=== PATIENT | male | born 1990 | race Caucasian/White ===

== ENCOUNTER 2021-04-08 09:49 | Emergency (ER) | payer SELFPAY ==
--- NOTE | 2021-04-08 09:47 | ECG_ITS ---
APPROVED REPORT Exam: Resting ECG HR:94 bpm ECG Measurements Heart Rate 94 AXES VA 144 P 52 QRSd 84 QRS 21 QT 386 T 33 QTc 482 Conclusion Normal sinus rhythm Prolonged QT Abnormal ECG Electronically signed by : Aki Pena MD 04/08/2021 15:12:02
[2021-04-08 09:50] VITALS: BP 137/93; PULSE 94; RESP 16; TEMP 37.1; O2SAT 100; BMI 306636.1
[2021-04-08 09:51] VITALS: BMI 30.7
--- NOTE | 2021-04-08 09:53 | XR_ITS ---
PROCEDURE INFORMATION: Exam: XR Chest Exam date and time: 04/08/2021 9:53 AM Age: 30 years old Clinical indication: Shortness of breath; Patient HX: SOA, with chest pain started x 1 hour ago , smoker TECHNIQUE: Imaging protocol: XR of the chest. Views: 1 view. COMPARISON: No relevant prior studies available. FINDINGS: Lungs: Unremarkable. No consolidation. Pleural spaces: Unremarkable. No pleural effusion. No pneumothorax. Heart/Mediastinum: Unremarkable. No cardiomegaly. Bones/joints: Unremarkable. IMPRESSION: No acute findings.
--- NOTE | 2021-04-08 09:58 | [facility].EDCP ---
ED Disposition Clinical Impression: Atypical chest pain, Substance abuse Chest pain Qualifiers: Chest pain type: unspecified Qualified Code(s): R07.9 - Chest pain, unspecified Disposition: Home, Self-Care Condition on Discharge: Good Instructions: DI for Atypical Chest Pain Additional Instructions: Including cocaine. Follow-up with your primary care physician in about 3 to 4 days for a cardiac work-up. Please return to the emergency department if you feel worse in any way. Referrals: Provider,Referral, [Primary Care Provider] - - Critical Care Critical Care Time: No Attestation: On , the high probability of a clinically significant, sudden or life threatening deterioration of the following system(s) required my full and direct attention, intervention and personal management. The time I documented below is in addition to time spent performing reported procedures but includes the following listed in this critical care notation. Medical Decision Making - Medical Records Medical records reviewed: Yes: I reviewed the patient's medical records. - Frantz Inquiry Pt receiving controlled substance: No Vital Signs: 04/08/21 09:50 04/08/21 10:00 04/08/21 10:30 Temperature 98.8 F Temperature Source Oral Pulse Rate 84 76 Pulse Rate [Radial] 94 H Respiratory Rate 16 15 17 Blood Pressure 138/85 121/76 Blood Pressure [Right Arm] 137/93 H Blood Pressure Mean [Right Arm] 107 Blood Pressure Position [Right Arm] Sitting 02 Sat by Pulse Oximetry 100 100 99 Oxygen Delivery Method Room Air - Lab Data Lab results reviewed: Yes: I reviewed the patient's lab results. Lab Results 04/08/21 09:30: WBC 19.6 H, RBC 4.85, Hgb 14.8, Hct 41.3 L, MCV 85.3, MCH 30.4, MCHC 35.7 H, RDW 13.3, Plt Count 416, MPV 7.2 L, Neut % (Auto) 82.2 H, Lymph % (Auto) 11.8, [place] % (Auto) 5.4, Eos % (Auto) 0.4, Baso % (Auto) 0.3, Neut # (Auto) 16.1 H, Lymph # (Auto) 2.3, [place] # (Auto) 1.1 H, Eos # (Auto) 0.1, Baso # (Auto) 0.1, Total Counted 100, Neutrophils % (Manual) 75, Lymphocytes % (Manual) 20, Monocytes % (Manual) 5, Platelet Estimate Normal, RBC Morphology Normal 04/08/21 09:30: Sodium 139, Potassium 3.8, Chloride 105, Carbon Dioxide 20 L, Anion Gap 17.8 H, BUN 11, Creatinine 0.90, Estimated Creat Clear 144, Estimated GFR 98, Est GFR ( Amer) 118, Glucose 115 H, Calcium 9.7, Troponin I < 0.01 04/08/21 10:15: Urine Color Yellow, Urine Appearance Clear, Urine pH 8.0, Ur Specific [place] 1.010, Urine Protein Negative, Urine Glucose (UA) Negative, Urine Ketones Negative, Urine Blood Trace-l, Urine Nitrate Negative, Urine Bilirubin Negative, Urine Urobilinogen 0.2, Ur Leukocyte Esterase Negative, Urine RBC 3-5, Urine WBC Occasional, Ur Squamous Epith Cells 3-5, Urine Bacteria None 04/08/21 10:15: Urine Opiates Screen Negative, Urine Methadone Screen Negative, Ur Barbituates Screen Negative, Ur Phencyclidine Scrn Negative, Ur Amphetamines Screen Negative, U Benzodiazepines Scrn Negative, Urine Cocaine Screen Positive H, U Marijuana (THC) Screen Negative 04/08/21 12:15: Troponin I < 0.01 Result diagrams: 04/08/21 09:30 04/08/21 09:30 Orders (Tests/Meds): ORDERS Category Date Time Status Troponin I Q3H Lab 04/08/21 16:00 Ordered - Radiology Data #1 Image(s): Chest Image Reviewed: Yes I reviewed the patient's radiology results, Yes I reviewed the patient's radiology image, Yes I have reviewed radiologist's interpretation Preliminary Findings: Normal/NAD - ECG Data Tracing #1 I reviewed this ECG and interpreted as documented below: The patient's EKG was done at 9:48 AM. Shows a normal sinus rhythm with a rate of 94 bpm. There is a prolonged QT interval. Otherwise the ECG is unremarkable without any evidence of dysrhythmia and or ischemia. Normal Sinus Rhythm: Yes Conduction abnormalities present: QT prolongation - GERALDO Score for Non-Stemi Age of Patient: 30-39 years old Heart Rate: 90-109 bpm Syst[place]
[2021-04-08 10:00] VITALS: BP 138/85; PULSE 84; RESP 15; O2SAT 100
[2021-04-08 10:04] LABS: Basophils # 0.1 K/mm3 (0-0.2); Basophils % 0.3 % (0.1-2.0); Eosinophils # 0.1 K/mm3 (0.0-0.4); Eosinophils % 0.4 % (0.1-12.0); Hematocrit 41.3 % (42.0-52.0); Hemoglobin 14.8 g/dL (14.1-18.0); Lymphocytes # 2.3 K/mm3 (0.7-4.5); Lymphocytes % 11.8 % (10-50); Mean Corpuscular HGB Conc 35.7 g/dL (31.8-35.4); Mean Corpuscular Hemoglobin 30.4 pg (27.0-31.2); Mean Corpuscular Volume 85.3 fl (80-94); Mean Platelet Volume 7.2 fl (7.4-10.4); Monocytes # 1.1 K/mm3 (0.1-1.0); Monocytes % 5.4 % (1.7-9.3); Neutrophils # 16.1 K/mm3 (1.8-7.8); Neutrophils % 82.2 % (37.0-80.0); Platelet Count 416 K/mm3 (142-424); Red Blood Count 4.85 M/mm3 (4.60-6.20); Red Cell Distribution Width 13.3 % (11.5-17.5); White Blood Count 19.6 K/mm3 (4.8-10.8)
[2021-04-08 10:06] LABS: MANUAL DIFFERENTIAL MANUAL DIFFERENTIAL (MANUAL DIFF)
[2021-04-08 10:10] LABS: Chloride 105 mmol/L (98-107); Sodium 139 mmol/L (136-145)
[2021-04-08 10:11] LABS: Potassium 3.8 mmoL/L (3.5-5.1)
[2021-04-08 10:13] LABS: Blood Urea Nitrogen 11 mg/dl (9-20); Creatinine Clearance Estimated 144 mL/min (50-200); Estimated Glomerular Filt Rate 98 ml/min (>60); GFR (African American) 118 ML/MIN (>60)
[2021-04-08 10:14] LABS: Anion Gap 17.8 mEq/L (5-15); Calcium 9.7 mg/dl (8.4-10.2); Carbon Dioxide 20 mmol/L (22.0-30.0); Glucose 115 mg/dl (74-100)
[2021-04-08 10:17] LABS: Lymphocytes % 20 % (10-50); Monocytes % 5 % (2-9); Neutrophils % 75 % (42-76); Platelet Estimate Normal; RBC Morphology Normal; Total Cells Counted 100
[2021-04-08 10:22] LABS: Appearance,Urine CLEAR (Clear); Bilirubin,Urine Negative (Negative); Blood, Urine TRACE-L (Negative); Color,Urine YELLOW (Yellow); Glucose,Urine (UA) Negative (Negative); Ketones,Urine Negative (Negative); Leukocyte Esterase,Urine Negative (Negative); Microscopic, Urine URINE MICROSCOPIC (MICROSCOPIC); Nitrate,Urine Negative (Negative); Protein,Urine Negative (Negative); Urobilinogen,Urine 0.2 EU/dl (0.2)
[2021-04-08 10:27] LABS: Troponin I < 0.01 ng/ml (0.00-0.034)
[2021-04-08 10:30] VITALS: BP 121/76; PULSE 76; RESP 17; O2SAT 99
[2021-04-08 10:37] LABS: Barbiturates Screen,Urine Negative ng/ml (<200)
[2021-04-08 10:38] LABS: Amphetamine/Metha Screen,Urine Negative ng/ml (<1000); Benzodiazepines Screen,Urine Negative ng/ml (<200)
[2021-04-08 10:39] LABS: Methadone Screen,Urine Negative ng/ml (<300)
[2021-04-08 10:40] LABS: Cannabinoid Screen,Urine Negative ng/ml (<50); Cocaine Screen,Urine Positive ng/ml (<300)
[2021-04-08 10:41] LABS: Opiate Screen,Urine Negative ng/ml (<300)
[2021-04-08 10:42] LABS: Phencyclidine Screen,Urine Negative ng/ml (<25)
[2021-04-08 10:44] LABS: WBC,Urine Occasional #/hpf (0-3)
[2021-04-08 11:30] VITALS: BP 128/74; PULSE 78
--- NOTE | 2021-04-08 12:17 | PC.NURSE ---
Pt has requested to leave v/s monitors off
[2021-04-08 12:30] VITALS: BP 119/68; PULSE 72; RESP 16; O2SAT 96
[2021-04-08 13:31] LABS: Troponin I < 0.01 ng/ml (0.00-0.034)
[2021-04-08 13:49] VITALS: BP 121/80; PULSE 78; RESP 15; TEMP 36.6; O2SAT 98
== END 2021-04-08 13:50 | disposition home or self-care (01) ==
PROVIDERS: Emergency Provider Emergency Medicine
DX: R07.89 Other chest pain (principal); F19.10 Other psychoactive substance abuse, uncomplicated; F17.210 Nicotine dependence, cigarettes, uncomplicated
CPT/HCPCS: 71045; 80048; 80305; 81001; 84484; 85007; 85025; 93005; 99283

== ENCOUNTER 2023-01-24 21:37 | Emergency (ER) | payer SELFPAY ==
[2023-01-24 21:38] VITALS: BP 168/94; PULSE 91; RESP 16; TEMP 36.6; O2SAT 96; BMI 27.4
--- NOTE | 2023-01-24 21:45 | ECG_ITS ---
APPROVED REPORT Exam: Resting ECG HR:90 bpm ECG Measurements Heart Rate 90 AXES [place] 140 P 69 QRSd 93 QRS 62 QT 340 T 66 QTc 388 Conclusion SINUS RHYTHM INDETERMINATE AXIS POSSIBLE RIGHT VENTRICULAR CONDUCTION DELAY [RSR (QR) IN V1/V2] BORDERLINE ECG UNCONFIRMED REPORT Electronically signed by : Aki Pena MD 01/26/2023 07:16:10
[2023-01-24 22:06] VITALS: BMI 27.4
--- NOTE | 2023-01-24 22:07 | CT_ITS ---
PROCEDURE INFORMATION: Exam: CT Maxillofacial With Contrast Exam date and time: 01/24/2023 10:23 PM Age: 32 years old Clinical indication: Other: Dental pain; Additional info: Abcess tooth with facial pressure TECHNIQUE: Imaging protocol: Computed tomography of the face with contrast. Total images: 231 Radiation optimization: All CT scans at this facility use at least one of these dose optimization techniques: automated exposure control; mA and/or kV adjustment per patient size (includes targeted exams where dose is matched to clinical indication); or iterative reconstruction. Contrast material: ISOVUE; Contrast volume: 75 ml; Contrast route: IV; REPORTING DATA: Count of CT and Cardiac NM exams in prior 12 months: This patient has received 0 known CTs and 0 known cardiac nuclear medicine studies in the 12 months prior to the current study. COMPARISON: CT HEAD/BRAIN WO CON 01/24/2023 10:20 PM FINDINGS: Orbital cavities: Orbital globes are intact and symmetric. No retro-orbital mass, fluid, or air. Bones/joints: Nasal septal deviation to the right with a septal spur. No facial bone fracture. No concerning bone lesions. Intact mandible. Symmetric bilateral temporomandibular joints. Included upper cervical spine at C1 through C4 5 is grossly unremarkable but incompletely visualized. Paranasal sinuses: Retention cysts or polyps base of the bilateral maxillary sinuses. Included sinuses are otherwise clear. No air-fluid levels. Ostiomeatal complexes are patent. Soft tissues: Perimandibular soft tissue swelling. No discrete abscess or drainable fluid collection. Punctate metallic foreign body left upper lip. Dental: Very poor dental health with multiple dental erosions and dental fragmentations. Absent teeth. Periapical root abscess referable to the posterior left mandibular molar. IMPRESSION: 1. Very poor dental health with multiple dental erosions, caries, and fragmentations. Recommend dental consultation. 2. Periapical root abscess posterior left mandibular molar. 3. Perimandibular soft tissue swelling. No visualized or discrete abscess. 4. Incidental bilateral maxillary retention cysts or polyps.
--- NOTE | 2023-01-24 22:07 | CT_ITS ---
PROCEDURE INFORMATION: Exam: CT Head Without Contrast Exam date and time: 01/24/2023 10:20 PM Age: 32 years old Clinical indication: Other: Abcess tooth pain; Additional info: Abcess tooth with facial pressure TECHNIQUE: Imaging protocol: Computed tomography of the head without contrast. Total images: 281 Radiation optimization: All CT scans at this facility use at least one of these dose optimization techniques: automated exposure control; mA and/or kV adjustment per patient size (includes targeted exams where dose is matched to clinical indication); or iterative reconstruction. REPORTING DATA: Count of CT and Cardiac NM exams in prior 12 months: This patient has received 0 known CTs and 0 known cardiac nuclear medicine studies in the 12 months prior to the current study. COMPARISON: No relevant prior studies available. FINDINGS: Brain: No acute intracranial hemorrhage, midline shift, or mass. Damico-white interface is maintained. Basilar cisterns are preserved. Cerebral ventricles: No ventriculomegaly. Paranasal sinuses: Polyp or retention cysts bilateral maxillary sinuses. No air-fluid levels. Polyps or retention cysts bilateral maxillary sinuses. Mastoid air cells: Visualized mastoid air cells are well aerated. Bones/joints: Unremarkable. No acute fracture. Soft tissues: Unremarkable. IMPRESSION: No acute intracranial process.
--- NOTE | 2023-01-24 22:09 | XR_ITS ---
PROCEDURE INFORMATION: Exam: XR Chest Exam date and time: 01/24/2023 10:19 PM Age: 32 years old Clinical indication: Other: Heart palpatations, dental abcess; Additional info: Heart palpitations TECHNIQUE: Imaging protocol: Radiologic exam of the chest. Views: 2 views. Total images: 2 COMPARISON: CR XR CHEST PORTABLE 04/08/2021 10:09 AM FINDINGS: Tubes, catheters and devices: EKG leads are present. Lungs: Unremarkable. No consolidation. No pulmonary vascular congestion or edema. Pleural spaces: Unremarkable. No pleural effusion. No pneumothorax. Heart/Mediastinum: Unremarkable. No cardiomegaly. No mediastinal widening or hilar enlargement. Bones/joints: Mild anterior wedging L1 and L2 vertebral bodies of undetermined acuity. Organs: Excreted contrast from both kidneys. IMPRESSION: No radiographically acute cardiopulmonary process.
[2023-01-24 22:24] LABS: Coronavirus 19, PCR Not Detected (NotDetected); Influenza A, PCR Not Detected (NotDetected); Influenza B, PCR Not Detected (NotDetected)
--- NOTE | 2023-01-24 22:30 | PC.NURSE ---
pt back from scan
[2023-01-24 22:32] LABS: Basophils % 0.2 % (0.1-2.0); Eosinophils # 0.3 K/mm3 (0.0-0.4); Eosinophils % 1.8 % (0.1-12.0); Hematocrit 46.4 % (42.0-52.0); Hemoglobin 15.7 g/dL (14.1-18.0); Lymphocytes # 1.6 K/mm3 (0.7-4.5); Lymphocytes % 9.7 % (10-50); Mean Corpuscular HGB Conc 33.8 g/dL (31.8-35.4); Mean Corpuscular Hemoglobin 30.4 pg (27.0-31.2); Mean Corpuscular Volume 89.9 fl (80-94); Mean Platelet Volume 7.4 fl (7.4-10.4); Monocytes # 0.6 K/mm3 (0.1-1.0); Monocytes % 3.8 % (1.7-9.3); Neutrophils # 13.8 K/mm3 (1.8-7.8); Neutrophils % 84.5 % (37.0-80.0); Platelet Count 305 K/mm3 (142-424); Red Blood Count 5.16 M/mm3 (4.60-6.20); Red Cell Distribution Width 13.3 % (11.5-17.5); White Blood Count 16.4 K/mm3 (4.8-10.8)
[2023-01-24 22:33] LABS: Chloride 98 mmol/L (98-107); Potassium 3.7 mmoL/L (3.5-5.1); Sodium 138 mmol/L (136-145)
[2023-01-24 22:35] LABS: Alanine Aminotransferase 23 U/L (12-78); Alkaline Phosphatase 72 U/L (38-126); Aspartate Amino Transferase 28 U/L (17-59); Bilirubin,Total 0.6 mg/dl (0.2-1.3); Blood Urea Nitrogen 16 mg/dl (9-20); Creatinine Clearance Estimated 126 mL/min (50-200); Estimated Glomerular Filt Rate 97 ml/min (>60); GFR (African American) 117 ML/MIN (>60)
[2023-01-24 22:36] LABS: Albumin Level 4.6 g/dl (3.5-5.0); Albumin/Globulin Ratio 1.6 (1.1-1.8); Anion Gap 16.7 mEq/L (5-15); Calcium 9.1 mg/dl (8.4-10.2); Carbon Dioxide 27 mmol/L (22.0-30.0); Globulin 2.8 g/dL (1.3-3.2); Glucose 98 mg/dl (74-100); Total Protein,Serum 7.4 g/dl (6.3-8.2)
[2023-01-24 22:37] LABS: Lactic Acid 0.6 mmol/L (0.7-2.1)
[2023-01-24 22:41] LABS: C-Reactive Protein 4.6 mg/L (0-4)
[2023-01-24 22:42] LABS: MANUAL DIFFERENTIAL MANUAL DIFFERENTIAL (MANUAL DIFF)
[2023-01-24 22:44] VITALS: BP 122/76; RESP 15; O2SAT 98
[2023-01-24 22:50] LABS: Troponin I < 0.01 ng/ml (0.00-0.034)
[2023-01-24 23:00] VITALS: BP 120/73; RESP 16
[2023-01-24 23:30] VITALS: BP 124/80; PULSE 86; RESP 17; O2SAT 98
[2023-01-24 23:33] LABS: Lymphocytes % 8 % (10-50); Monocytes % 3 % (2-9); Neutrophils % 89 % (42-76); Total Cells Counted 100
[2023-01-24 23:34] LABS: Platelet Estimate Normal; RBC Morphology Normal
--- NOTE | 2023-01-24 23:44 | [facility].EDWEAK ---
Discharge Plan Disposition Patient Disposition: Home, Self-Care Prescriptions Prescriptions: New cephalexin [cephalexin] 500 mg capsule 500 mg PO TID Qty: 30 0RF Referrals Follow up/Referrals: Provider,Referral, MD [Primary Care Provider] - See instructions Clinical Impressions Clinical Impression: Weakness, Infected dental caries Instructions Patient Instructions: DI for Tooth Decay Discharge ED Provider: Ann (ED)Wilmar Weakness HPI General Chief complaint: Weakness Stated complaint: fever numbness in both arms Time Seen by Provider: 01/24/23 23:00 Mode of Arrival: Wheelchair Source of Information: Patient and Medical Record Limitations: No Limitations Description of Symptoms (Recalled from ER Triage Doc. by RN): pt states has been dealing with a tooth infection for a couple months and taking different antibodics at times. today pt states he developed a fever,heart paplations, sinus pressure, and [place] History of Present Illness HPI Narrative: ongoing dental infection and had tingling to hands tonight - hx of occ cardiac palpitations MD Complaint: generalized weakness Onset (ago): hour(s) Duration: intermittent Location: generalized Migration: none Severity: moderate Quality: tingling Associated symptoms: denies other symptoms Related Data Previous Rx's Medication Instructions Recorded cephalexin 500 mg capsule 500 mg PO TID #30 caps 01/25/23 Allergies Allergy/AdvReac Type Severity Reaction Status Date / Time No Known Allergies Allergy Verified 04/08/21 09:52 [facility] Disclaimer: The information contained in this section may have been updated after the patient was seen, as this information can be updated by other users. Social History Smoking Status: Current every day smoker alcohol intake: never current occupational status: employed Travel in the last 8 weeks: None ROS Obtained: Yes All systems reviewed & no additional complaints except as documented Physical Exam General General appearance: alert Head Head exam: normocephalic Eye Eye exam: Present PERRL and EOMI ENT ENT exam: Present mucous membranes moist and other (poor dental care ) Neck Neck exam: Present trachea midline Respiratory Respiratory exam: Absent respiratory distress Cardiovascular Cardiovascular exam: Present regular rate; Absent systolic murmur or rubs Abdominal Exam Abdominal exam: Present soft Extremities Exam Extremities exam: Present full ROM Neurological Exam Neurological exam: Present alert, oriented X3 and CN II-XII intact; Absent motor sensory deficit Skin Skin exam: Absent rash Medical Decision Making Medical Records Medical records reviewed: Yes I reviewed the patient's medical records. Frantz Inquiry Pt receiving controlled substance: No Vital Signs: 01/24/23 21:38 01/24/23 22:44 01/24/23 23:00 Temperature 97.8 F Temperature Source Oral Pulse Rate Pulse Rate [Right] 91 H Respiratory Rate 16 15 16 Blood Pressure 122/76 120/73 Blood Pressure [Right Arm] 168/94 H Blood Pressure Mean 91 88 Blood Pressure Mean [Right Arm] 118 02 Sat by Pulse Oximetry 96 98 01/24/23 23:30 01/25/23 00:00 01/25/23 00:30 Temperature Temperature Source Pulse Rate 86 88 84 Pulse Rate [Right] Respiratory Rate 17 15 Blood Pressure 124/80 137/91 H 117/78 Blood Pressure [Right Arm] Blood Pressure Mean 91 102 Blood Pressure Mean [Right Arm] 02 Sat by Pulse Oximetry 98 98 97 Lab Data Lab results reviewed: Yes I reviewed the patient's lab results. Lab Results 01/24/23 00:01: Urine Color Yellow, Urine Appearance Clear, Urine pH 5.5, Ur Specific [place] 1.010, Urine Protein Negative, Urine Glucose (UA) Negative, Urine Ketones Negative, Urine Blood Trace-i, Urine Nitrate Negative, Urine Bilirubin Negative, Urine Urobilinogen 0.2, Ur Leukocyte Esterase Negative, Urine RBC Occasional, Urine WBC None, Ur Squamous Epith Cells Occasional, Urine Bacteri
[2023-01-25] VITALS: BP 137/91; PULSE 88; O2SAT 98
[2023-01-25 00:07] LABS: Microscopic, Urine URINE MICROSCOPIC (MICROSCOPIC)
[2023-01-25 00:16] LABS: Appearance,Urine CLEAR (Clear); Bilirubin,Urine Negative (Negative); Blood, Urine TRACE-I (Negative); Color,Urine YELLOW (Yellow); Glucose,Urine (UA) Negative (Negative); Ketones,Urine Negative (Negative); Leukocyte Esterase,Urine Negative (Negative); Nitrate,Urine Negative (Negative); PH,Urine 5.5 (5.0-8.5); Protein,Urine Negative (Negative); Urobilinogen,Urine 0.2 EU/dl (0.2)
--- NOTE | 2023-01-25 00:16 | PC.NURSE ---
pt given ice chips at this time
[2023-01-25 00:23] LABS: RBC,Urine Occasional #/hpf (0-3); Squamous Epithelial Cell,Urine Occasional #/hpf (0-5)
[2023-01-25 00:29] LABS: Amphetamine/Metha Screen,Urine Negative ng/ml (<1000); Barbiturates Screen,Urine Negative ng/ml (<200)
[2023-01-25 00:30] VITALS: BP 117/78; PULSE 84; RESP 15; O2SAT 97
[2023-01-25 00:30] LABS: Benzodiazepines Screen,Urine Negative ng/ml (<200)
[2023-01-25 00:31] LABS: Cannabinoid Screen,Urine Positive ng/ml (<50); Cocaine Screen,Urine Negative ng/ml (<300)
[2023-01-25 00:32] LABS: Methadone Screen,Urine Negative ng/ml (<300)
[2023-01-25 00:33] LABS: Opiate Screen,Urine Negative ng/ml (<300); Phencyclidine Screen,Urine Negative ng/ml (<25)
[2023-01-25 01:03] LABS: Erythrocyte Sedimentation Rate 11 mm/hr (0-15)
[2023-01-25 01:12] VITALS: BP 126/78; PULSE 81; RESP 17; TEMP 36.6; O2SAT 98
== END 2023-01-25 01:17 | disposition home or self-care (01) ==
PROVIDERS: Emergency Provider Emergency Medicine
DX: R53.1 Weakness (principal); R50.9 Fever, unspecified; R20.0 Anesthesia of skin; F17.200 Nicotine dependence, unspecified, uncomplicated
CPT/HCPCS: 70450; 70487; 71046; 80053; 80305; 81001; 83605; 84484; 85007; 85025; 85651; 86140; 87040; 87636; 93005; 96361; 96374; 99285; C9803; J0696; Q9967; U0003; U0005